=== PATIENT | male | born 1940 | race Caucasian/White ===

== ENCOUNTER 2017-03-09 10:42 | Inpatient (IN) | payer OTHER ==
[~2017-03-09] VITALS: Ht 177.8 cm; Wt 57.6 kg
[~2017-03-09 10:42] MED LIST: ALEVE220 MG PO; CAT0.1 PO; CIPRO500 MG PO; FLA500 PO; LAC PO; METHADONE HCL5 MG PO; NOR5 PO; [UNRECOGNIZED DRUG - REMARK] PO
[2017-03-09 13:11] LABS: BASOPHIL % 0.4 % (0-2); PLATELET COUNT 120 x10^3mcL (130-400); RED CELL DISTRIBUTION WIDTH 16.2 % (11.5-14.5)
[2017-03-09 13:17] LABS: CALCIUM 7.9 mg/dL (8.5-10.1); CARBON DIOXIDE 25.8 mmol/L (21-32); CHLORIDE SERUM 107 mmol/L (98-107); CREATININE SERUM 0.8 mg/dL (0.7-1.3); GLUCOSE SERUM 91 mg/dL (74-106); POTASSIUM SERUM 3.7 mmol/L (3.5-5.1); SODIUM SERUM 139 mmol/L (136-145)
[2017-03-09 13:22] LABS: ALKALINE PHOSPHATASE 103 U/L (46-116); ALT/SGPT 89 U/L (16-63); AST/SGOT 92 U/L (15-37); BILIRUBIN TOTAL 1.6 mg/dL (0.20-1.00); CHOLESTEROL 163 mg/dL (<200); CHOLESTEROL/HDL RATIO 2.9; HDL CHOLESTEROL 57 mg/dL (40-60); TRIGLYCERIDES 81 mg/dL (<150)
[2017-03-09 13:30] LABS: ALBUMIN 2.5 g/dL (3.4-5.0); TOTAL PROTEIN, SERUM 8.6 g/dL (6.4-8.2)
[2017-03-09] MEDS ORDERED: METHADONE HCL5 MG PO (14:44)
[2017-03-09 15:08] LABS: MAGNESIUM 1.8 mg/dL (1.8-2.4)
[2017-03-09 15:15] LABS: T3 TOTAL 1.14 ng/mL
[2017-03-09 15:21] LABS: FREE T4 1.53 ng/dL (0.76-1.46); FREE THYROXINE INDEX 3.2 ug/dL (1.4-4.5); T4(THYROXINE) 9.8 ug/dL (4.7-13.3)
[2017-03-09 18:08] VITALS: BP 157/89
[2017-03-09 21:49] VITALS: BP 125/72
[2017-03-10 05:59] VITALS: BP 133/85
[2017-03-10 07:18] LABS: BASOPHIL % 0.9 % (0-2)
[2017-03-10 07:23] LABS: CALCIUM 7.5 mg/dL (8.5-10.1); CARBON DIOXIDE 23.1 mmol/L (21-32); CHLORIDE SERUM 112 mmol/L (98-107); CREATININE SERUM 0.7 mg/dL (0.7-1.3); GLUCOSE SERUM 77 mg/dL (74-106); POTASSIUM SERUM 3.6 mmol/L (3.5-5.1); SODIUM SERUM 142 mmol/L (136-145)
[2017-03-10 07:46] LABS: PLATELET COUNT 88 x10^3mcL (130-400); RED CELL DISTRIBUTION WIDTH 16.3 % (11.5-14.5)
[2017-03-10 08:59] VITALS: BP 142/106
== END 2017-03-10 12:27 | disposition left against medical advice (07) | DRG 542 ==
LOC: ED 10:42 → DU 14:20
PROVIDERS: Specialist; ADMIT Family Medicine
DX: M84.459A Pathological fracture, hip, unspecified, initial encounter for fracture (principal); E43 Unspecified severe protein-calorie malnutrition; N17.0 Acute kidney failure with tubular necrosis; Z68.1 Body mass index [BMI] 19.9 or less, adult; M84.454A Pathological fracture, pelvis, initial encounter for fracture; I10 Essential (primary) hypertension; L60.2 Onychogryphosis; K74.69 Other cirrhosis of liver; D64.9 Anemia, unspecified
CPT/HCPCS: 83880; 84439; J3411; J3475; J3490; J7030; Q0092

== ENCOUNTER 2017-11-10 01:11 | Emergency (ER) | payer OTHER ==
[~2017-11-10] VITALS: Ht 177.8 cm; Wt 54.4 kg
[2017-11-10 01:21] VITALS: Ht 177.8 cm; Wt 54.4 kg
[2017-11-10 02:43] LABS: BASOPHIL % 0.5 % (0-2)
[2017-11-10 03:02] LABS: PLATELET COUNT 87 x10^3mcL (130-400); RED CELL DISTRIBUTION WIDTH 15.2 % (11.5-14.5)
[2017-11-10 03:55] LABS: CALCIUM 7.5 mg/dL (8.5-10.1); CARBON DIOXIDE 22.8 mmol/L (21-32); CHLORIDE SERUM 106 mmol/L (98-107); CREATININE SERUM 1.2 mg/dL (0.7-1.3); GLUCOSE SERUM 102 mg/dL (74-106); POTASSIUM SERUM 4.1 mmol/L (3.5-5.1); SODIUM SERUM 139 mmol/L (136-145)
[2017-11-10 03:59] LABS: ALKALINE PHOSPHATASE 91 U/L (46-116); ALT/SGPT 68 U/L (16-63); AST/SGOT 74 U/L (15-37)
[2017-11-10 04:01] LABS: ALBUMIN 2.3 g/dL (3.4-5.0); CHOLESTEROL 125 mg/dL (<200)
[2017-11-10 04:38] VITALS: BP 119/84
== END 2017-11-10 04:38 | disposition home or self-care (01) ==
LOC: ED 01:11
PROVIDERS: Specialist
DX: R55 Syncope and collapse (principal); I10 Essential (primary) hypertension; Z88.0 Allergy status to penicillin
CPT/HCPCS: 36415; 83880; G0480; J7030

== ENCOUNTER 2018-04-04 18:29 | Inpatient (IN) | payer OTHER ==
[~2018-04-04] VITALS: Ht 170.2 cm; Wt 55.6 kg
[2018-04-04 20:33] LABS: BASOPHIL % 1.7 % (0-2); PLATELET COUNT 133 x10^3mcL (130-400)
[2018-04-04 20:49] LABS: RED CELL DISTRIBUTION WIDTH 14.8 % (11.5-14.5)
[2018-04-04 20:54] LABS: CALCIUM 7.8 mg/dL (8.5-10.1); CARBON DIOXIDE 27.7 mmol/L (21-32); CHLORIDE SERUM 109 mmol/L (98-107); GLUCOSE SERUM 131 mg/dL (74-106); POTASSIUM SERUM 3.9 mmol/L (3.5-5.1); SODIUM SERUM 142 mmol/L (136-145)
[2018-04-04 20:59] LABS: ALKALINE PHOSPHATASE 106 U/L (46-116); ALT/SGPT 77 U/L (16-63); AST/SGOT 75 U/L (15-37); BILIRUBIN TOTAL 0.94 mg/dL (0.20-1.00); LIPASE 624 IU/L (73-393)
[2018-04-04 21:00] LABS: ALBUMIN 2.5 g/dL (3.4-5.0); TOTAL PROTEIN, SERUM 8.6 g/dL (6.4-8.2)
[2018-04-05 01:34] LABS: CHOLESTEROL/HDL RATIO 3.2; MAGNESIUM 1.9 mg/dL (1.8-2.4)
[2018-04-05 02:14] VITALS: BP 158/79
[2018-04-05 06:02] VITALS: BP 141/80
[2018-04-05 07:14] VITALS: BP 147/78
[2018-04-05] MEDS ORDERED: FLE10 PO (13:06)
[2018-04-05 13:19] VITALS: BP 147/78
[2018-04-05 21:06] VITALS: BP 129/66
== END 2018-04-05 23:15 | disposition home or self-care (01) | DRG 562 ==
LOC: ED 18:29 → MU 04-05 00:03
PROVIDERS: Emergency Medicine; Family Medicine
DX: S39.012A Strain of muscle, fascia and tendon of lower back, initial encounter (principal); N17.0 Acute kidney failure with tubular necrosis; Z68.1 Body mass index [BMI] 19.9 or less, adult; K74.60 Unspecified cirrhosis of liver; F11.90 Opioid use, unspecified, uncomplicated; I10 Essential (primary) hypertension; Z66 Do not resuscitate; Z99.3 Dependence on wheelchair; X58.XXXA Exposure to other specified factors, initial encounter; Y93.89 Activity, other specified; Y92.013 Bedroom of single-family (private) house as the place of occurrence of the external cause
CPT/HCPCS: 83880; J1885; J2060; J2270; J7030; Q9967

== ENCOUNTER 2018-05-22 13:17 | Emergency (ER) | payer OTHER | END 2018-05-22 18:11 | disposition home or self-care (01) | LOC: ED 13:17 ==

== ENCOUNTER 2019-02-22 16:35 | Inpatient (IN) | payer OTHER ==
[~2019-02-22] VITALS: Ht 170.2 cm; Wt 60.0 kg
[~2019-02-22 16:35] MED LIST changes: +FLE10 PO
[2019-02-22 16:37] VITALS: Ht 170.2 cm; Wt 60.0 kg
[2019-02-22 17:57] LABS: BASOPHIL % 0.3 % (0-2); PLATELET COUNT 131 x10^3mcL (130-400)
[2019-02-22 18:02] LABS: RED CELL DISTRIBUTION WIDTH 16.4 % (11.5-14.5)
[2019-02-22 18:19] LABS: CALCIUM 7.1 mg/dL (8.5-10.1); CARBON DIOXIDE 24.6 mmol/L (21-32); CHLORIDE SERUM 110 mmol/L (98-107); CREATININE SERUM 1.4 mg/dL (0.7-1.3); GLUCOSE SERUM 132 mg/dL (74-106); POTASSIUM SERUM 3.8 mmol/L (3.5-5.1); SODIUM SERUM 142 mmol/L (136-145)
[2019-02-22 18:31] LABS: ALKALINE PHOSPHATASE 90 U/L (46-116); ALT/SGPT 43 U/L (16-63); AST/SGOT 48 U/L (15-37); BILIRUBIN TOTAL 1.6 mg/dL (0.20-1.00); LIPASE 459 IU/L (73-393); MAGNESIUM 1.8 mg/dL (1.8-2.4); T4(THYROXINE) 7.7 ug/dL (4.7-13.3); TOTAL PROTEIN, SERUM 7.1 g/dL (6.4-8.2)
[2019-02-22 18:39] LABS: CHOLESTEROL 108 mg/dL (<200); HDL CHOLESTEROL 23 mg/dL (40-60)
[2019-02-22 20:37] VITALS: BP 136/76
[2019-02-23 05:49] VITALS: BP 156/88
[2019-02-23 06:51] LABS: BASOPHIL % 0.3 % (0-2)
[2019-02-23 06:56] LABS: PLATELET COUNT 89 x10^3mcL (130-400); RED CELL DISTRIBUTION WIDTH 16.3 % (11.5-14.5)
[2019-02-23 07:08] LABS: CALCIUM 6.9 mg/dL (8.5-10.1); CARBON DIOXIDE 23.2 mmol/L (21-32); CHLORIDE SERUM 113 mmol/L (98-107); CREATININE SERUM 1.1 mg/dL (0.7-1.3); GLUCOSE SERUM 85 mg/dL (74-106); POTASSIUM SERUM 3.8 mmol/L (3.5-5.1); SODIUM SERUM 144 mmol/L (136-145)
[2019-02-23 07:14] LABS: MAGNESIUM 1.9 mg/dL (1.8-2.4); PHOSPHOROUS 2.5 mg/dL (2.5-4.9)
[2019-02-23 09:24] VITALS: BP 140/79
[2019-02-23 13:01] VITALS: BP 133/76
[2019-02-23 17:00] VITALS: BP 130/80
[2019-02-23 20:28] VITALS: BP 135/84
[2019-02-24 05:03] VITALS: BP 139/81
[2019-02-24 07:12] LABS: BASOPHIL % 0.4 % (0-2)
[2019-02-24 07:23] LABS: CARBON DIOXIDE 20.8 mmol/L (21-32); CHLORIDE SERUM 112 mmol/L (98-107); CREATININE SERUM 1.2 mg/dL (0.7-1.3); GLUCOSE SERUM 98 mg/dL (74-106); MAGNESIUM 1.7 mg/dL (1.8-2.4); PHOSPHOROUS 2.6 mg/dL (2.5-4.9); POTASSIUM SERUM 3.5 mmol/L (3.5-5.1); SODIUM SERUM 142 mmol/L (136-145)
[2019-02-24 07:26] VITALS: BP 142/79
[2019-02-24 07:44] LABS: PLATELET COUNT 100 x10^3mcL (130-400); RED CELL DISTRIBUTION WIDTH 16.3 % (11.5-14.5)
[2019-02-24 08:05] LABS: AMPHETAMINE QUAL UR NONE DETECTED (See below)
[2019-02-24 11:30] VITALS: BP 146/73
[2019-02-24 17:17] VITALS: BP 132/80
[2019-02-24 20:07] VITALS: BP 137/79
[2019-02-25 05:46] VITALS: BP 149/85
[2019-02-25 11:58] VITALS: BP 130/77
[2019-02-25 17:00] VITALS: BP 93/61
[2019-02-25 20:34] VITALS: BP 114/74
[2019-02-26 04:15] VITALS: BP 140/70
[2019-02-26 08:53] VITALS: BP 136/77
[2019-02-26 12:21] VITALS: BP 111/69
[2019-02-26 13:15] VITALS: BP 111/69
== END 2019-02-26 15:08 | DRG 441 ==
LOC: ED 16:35 → DU 19:19 → MU 02-26 11:56
PROVIDERS: Emergency Medicine; ADMIT Internal Medicine
DX: K72.00 Acute and subacute hepatic failure without coma (principal); I21.A1 Myocardial infarction type 2; E43 Unspecified severe protein-calorie malnutrition; N17.9 Acute kidney failure, unspecified; B18.2 Chronic viral hepatitis C; K70.30 Alcoholic cirrhosis of liver without ascites; I12.9 Hypertensive chronic kidney disease with stage 1 through stage 4 chronic kidney disease, or unspecified chronic kidney disease; F32.9 Major depressive disorder, single episode, unspecified; N18.9 Chronic kidney disease, unspecified; D64.9 Anemia, unspecified; L89.152 Pressure ulcer of sacral region, stage 2; L89.322 Pressure ulcer of left buttock, stage 2; L89.312 Pressure ulcer of right buttock, stage 2; L89.222 Pressure ulcer of left hip, stage 2; L89.212 Pressure ulcer of right hip, stage 2; Z99.3 Dependence on wheelchair; Z68.23 Body mass index [BMI] 23.0-23.9, adult; Z87.891 Personal history of nicotine dependence; Z79.891 Long term (current) use of opiate analgesic
CPT/HCPCS: 83880; 97110-GP; 97530-GP; G0378; G0480; J1956; J3475; J7030; Q0092

== ENCOUNTER 2019-03-23 13:07 | Inpatient (IN) | payer OTHER, MEDICAID ==
[~2019-03-23] VITALS: Ht 177.8 cm; Wt 60.8 kg
--- NOTE | 2019-03-23 13:44 | NUR ---
PT BROUGHT IN VIA AMBULANCE DUE TO FAMILY STATING HE HAS HAD RECENT ALOC. PT HAS GARBLED AND SLURRED SPEECH. HE STATES HE HAS NO PAIN AND ABLE TO ANSWER QUESTIONS APPROPRIATELY. DTR AT BEDSIDE. DTR STATES HE STARTED HAVING ALOC WHEN SNF STARTED [facility] LAST MONTH. HE HAS POSITIVE RHONCHI IN ALL LUNG CHU, NO DIFFICULTY IN BREATHING, O2 SATS AT 94% RA. WILL CONT TO MONITOR.
[2019-03-23 14:07] LABS: BASOPHIL % 0.2 % (0-2)
[2019-03-23 14:09] LABS: PLATELET COUNT 129 x10^3mcL (130-400); RED CELL DISTRIBUTION WIDTH 15.4 % (11.5-14.5)
[2019-03-23 14:33] LABS: CALCIUM 7.4 mg/dL (8.5-10.1); CARBON DIOXIDE 24.1 mmol/L (21-32); CHLORIDE SERUM 113 mmol/L (98-107); CREATININE SERUM 1.3 mg/dL (0.7-1.3); GLUCOSE SERUM 66 mg/dL (74-106); POTASSIUM SERUM 4.2 mmol/L (3.5-5.1); SODIUM SERUM 146 mmol/L (136-145)
[2019-03-23 14:37] LABS: ALKALINE PHOSPHATASE 73 U/L (46-116); ALT/SGPT 37 U/L (16-63); AST/SGOT 55 U/L (15-37); BILIRUBIN TOTAL 1.5 mg/dL (0.20-1.00); MAGNESIUM 2.1 mg/dL (1.8-2.4); TOTAL PROTEIN, SERUM 7.4 g/dL (6.4-8.2)
[2019-03-23 14:39] LABS: ALBUMIN 1.7 g/dL (3.4-5.0)
--- NOTE | 2019-03-23 15:46 | NUR ---
ADMINISTERED 1AMP 50% DEXTROSE IVP FOR BLOOD GLUCOSE VALUE: 66.
--- NOTE | 2019-03-23 16:33 | NUR ---
STRAIGHT CATH PT DUE TO INCONTINENCE. SENT TO LAB. DENIES PAIN AT THIS TIME.
[2019-03-23 17:22] LABS: microscopic required? YES; urine erythrocyte 3+ (NEGATIVE)
[2019-03-23 17:31] LABS: AMPHETAMINE QUAL UR NONE DETECTED (See below)
[2019-03-23 19:11] LABS: CHOLESTEROL/HDL RATIO 6.4
[2019-03-23 19:19] LABS: FREE T4 1.67 ng/dL (0.76-1.46); T3 TOTAL 0.55 ng/mL; T4(THYROXINE) 7.6 ug/dL (4.7-13.3)
[2019-03-23] MEDS ORDERED: ENULOSE10 GM/151 PO (19:22)
[2019-03-23] MEDS ORDERED: CATAPRES0.1 MG PO (19:25)
--- NOTE | 2019-03-23 19:37 | NUR ---
REPORT GIVEN TO TRUDY AT [id number]
--- NOTE | 2019-03-23 19:47 | NUR ---
TOOK PICS OF WOUNDS. ENDORSED TO TELE NURSE TO CHECK COCCYX AREA DUE TO PT GETTING AGITATED.
[2019-03-23 20:30] VITALS: BP 121/70
--- NOTE | 2019-03-23 20:30 | NUR ---
RECEIVED PT FROM ED VIA RPAMPLIN ACCOMPANY BY NURSE. PT AWAKE ALERT TO NAME ONLY. PT IS CONFUSED. BREATHING EVEN AND UNLABORED ON NC 3L/MIN, WITH NO SOB NOTED. IV RAC PATENT. ABD DIST/ACTIVE BOWEL SOUNDS. UNABLE TO OBTAIN PT INFORMATION AT THIS TIME. MULT WOUNDS, SEE ASSESSMENT. GENERALIZED WEAKNESS. CALL BUTTON WITHIN REACH. SAFETY PRECAUTIONS IN PLACE. WILL CONTINUE TO MONITOR.
--- NOTE | 2019-03-23 21:00 | NUR ---
BEDSIDE SWOLLOW EVAL DONE AT THIS TIME, PT ABLE TO TOLERATE PUREE. CRUSHED MEDS. MADE AWARE.
[2019-03-23 22:57] VITALS: BP 121/70
--- NOTE | 2019-03-23 23:04 | NUR ---
PT RESTLESS, REPORTING MILD PAIN. MEDICATED PER EMAR. CALL BUTTON WITHIN REACH. SAFETY PRECAUTIONS IN PLACE. GLOVE EXAMINER AT BEDSIDE. WILL CONTINUE TO MONITOR.
--- NOTE | 2019-03-24 03:21 | NUR ---
ROUNDS MADE. PT RESTING. NO SIGNS OF ACUTE DISTRESS NOTED. CALL BUTTON WITHIN REACH. SAFETY PRECAUTIONS IN PLACE. WILL CONTINUE TO MONITOR.
[2019-03-24 04:44] VITALS: BP 117/66
[2019-03-24 06:31] LABS: BASOPHIL % 0.3 % (0-2)
--- NOTE | 2019-03-24 06:34 | NUR ---
PT SLEPT ON AND OFF THROUGHOUT THE NIGHT WITH NO ACUTE DISTRESS NOTED. IV PATENT, INFUSING WELL. PT TURN AND REPOSITIONED NEEDED. MEDICATED PER EMAR. PT ON NC 3L/MIN WITH NO SOB NOTED. CALL BUTTON WITHIN REACH. SAFETY PRECAUTIONS IN PLACE. IT INVESTMENT/PORTFOLIO MANAGER AT BEDSIDE. WILL CONTINUE TO MONITOR AND ENDORSE CARE TO DAY SHIFT RN.
[2019-03-24 06:38] LABS: PLATELET COUNT 113 x10^3mcL (130-400); RED CELL DISTRIBUTION WIDTH 15.2 % (11.5-14.5)
--- NOTE | 2019-03-24 06:55 | NUR ---
US TECH AT BEDSIDE.
[2019-03-24 07:02] LABS: CALCIUM 7.4 mg/dL (8.5-10.1); CARBON DIOXIDE 26.2 mmol/L (21-32); CHLORIDE SERUM 116 mmol/L (98-107); CREATININE SERUM 1.5 mg/dL (0.7-1.3); GLUCOSE SERUM 91 mg/dL (74-106); MAGNESIUM 2.2 mg/dL (1.8-2.4); PHOSPHOROUS 4.4 mg/dL (2.5-4.9); POTASSIUM SERUM 4.5 mmol/L (3.5-5.1); SODIUM SERUM 149 mmol/L (136-145)
--- NOTE | 2019-03-24 07:25 | NUR ---
RECEIVED PT FROM TAILMAN. PT AWAKE, A/OX1 WITH CONFUSION NOTED. PT ON 3LNC WITH NO RESP DISTRESS NOTED. PT ON TELE 9, NO CHEST PAIN NOTED. IV ACCESS RFA, CDI INFUSING NS AT 70ML/HR. PERIPHERAL PULSES PALPABLE, PT NOTED TO HAVE 3+PITTING EDEMA TO LLE. ACTIVE BS NOTED. PT NOTED TO BE INCONTINENT OF URINE. PT HAS GENERALIZED WEAKNESS. SAFETY MEASURES IN PLACE, BED LOW AND LOCKED. CALL LIGHT WITHIN REACH.
--- NOTE | 2019-03-24 07:30 | NUR ---
PT AWAKE DENIES ANY PAIN. NO SIGNS OF DISTRESS NOTED. CALL BUTTON WITHIN REACH. SAFETY PRECAUTIONS IN PLACE. ENDORSED CARE TO DAY SHIFT RN, ALL QUESTIONS ADDRESSED.
--- NOTE | 2019-03-24 09:08 | NUR ---
UNABLE TO GIVE LACTULOSE, PT REFUSING AT THIS TIME. PT ABLE TO SWALLOW NORVASC WITH SMALL AMOUNT OF PUDDING.
[2019-03-24 09:18] VITALS: BP 138/72
--- NOTE | 2019-03-24 09:31 | NUR ---
NUBIA WOUND CARE AT BEDSIDE. SILVASORB APPLIED TO LEFT EYEBROW WOUND, HYDRAGUARD APPLIED TO LEGS, ZGUARD APPLIED TO BUTTOCK WOUNDS AND COVERED WITH OPTIFOAM. PT TOLERATED WELL. SITTER AT BEDSIDE. ALLERGY BAND APPLIED.
--- NOTE | 2019-03-24 09:38 | NUR ---
ULTRASOUND AT BEDSIDE TO R/O LLE DVT.
--- NOTE | 2019-03-24 11:45 | NUR ---
WOUND CARE EVALUATION NOTE: REASON FOR EVALUATION: MULTIPLE PRESSURE ULCERS SKIN ASSESSMENT DONE WITH THIS 78 Y/O MALE PT AD[place] [facility] [place] S/P FALL.PT. VISITED AND DISCHARGED HOME WITH SON. PAST MEDICAL HX INCLUDES HEPATITIS C WITH LIVER CIRRHOSIS, HTN, CHRONIC PAIN, AND DEPRESSION PT. ADMITTED WITH MULTIPLE PRESSURE ULCERS. ALL ABOVE INFORMATION OBTAINED FROM ADMISSION H&P. PT SKIN IS WARM AND DRY, BLE NO HAIR GROWTH, NO EDEMA. DORSAL PEDAL PULSES PRESENT AND NORMAL. FUNGAL NAILS X 10 TOES. PLAN OF CARE DISCUSSED WITH PRIMARY RN. INTEGUMENTARY: -SKIN TEARS TO LEFT EYEBROW (0.5X2CM) AND LEFT ELBOW (3X0.2CM), WOUND BEDS ARE MOIST AND CLEAN, SUPERFICIAL DEPTH, NO ODOR RAMON-WOUND SKIN ERYTHEMA. -XEROSIS TO BLE -PRESSURE ULCER STAGE 2 TO RIGHT TROCNANTER, 2X2X0.1CM 100% GRANULATING TISSUE TO WOUND BED, MOIST, NO ODOR, RAMON-WOUND SKIN INTACT. -PRESSURE ULCER STAGE 2 TO SACRALCOCCYX 1X2X0.1CM, 100% GRANULATING TISSUE TO WOUND BED, MOIST, NO ODOR, RAMON-WOUND SKIN INTACT. -PRESSURE ULCER STAGE 2 LEFT BUTTOCK, 3X3X0.1CM, IRREGULAR SHAPE, 100% GRANULATING TISSUE TO WOUND BED, MOIST, NO ODOR, RAMON-WOUND SKIN INTACT. -PRESSURE ULCER STAGE 2 RIGHT BUTTOCK, 4X2X0.1CM, IRREGULAR SHAPE, 100% GRANULATING TISSUE TO WOUND BED, MOIST, NO ODOR, RAMON-WOUND SKIN INTACT. RECOMMENDATIONS: -CLEANSE SKIN TEARS TO LEFT EYEBROW AND LEFT ELBOW WITH NS. PAT DRY APPLY SILVASORB GEL AND COVER WITH DRY DRESSSING QD AND PRN IF SOILING. -APPLY HYDRAGUARD TO BLE BID AND SOLUTION ANALYST -CLEANSE RIGHT TROCHANDAR, SACRALCOCCYX, RIGHT BUTTOCK AND LEFT BUTTOCK WITH NS, PAT DRY, APPLY Z GUARD AND COVER WITH OPTIFOAM QD AND PRN IF SOILING -OFFLOAD BILATERAL HEELS BY PLACING PILLOWS UNDER CALVES UNLESS OTHERWISE CONTRAINDICATED -PRESSURE REDISTRIBUTION SURFACE THERAPY -TURN AND REPOSITION Q2H, OFFLOAD SACRALCOCCYX AND RIGHT HIP -KEEP SKIN DRY AND CLEAN AT ALL TIMES, PLEASE CHECK Q2H AND PRN FOR INCONTINENCY OF BOWEL AND BLADDER. -CONTINUE TO FOLLOW RD RECOMMENDATIONS ALL ABOVE RECOMMENDATIONS DISCUSSED WITH PRIMARY RN. WILL FOLLOW UP PT Q7-10 DAYS. PLEASE CONTACT WOUND CARE NURSE FOR ANY QUESTION AND CHANGE OF WOUND CONDITION.
--- NOTE | 2019-03-24 12:30 | NUR ---
PT HAD SMALL FORMED BM. PT CLEANED AND REPOSITIONED WITH HOSPITAL INSURANCE CLERK. SAFETY MAINTAINED.
--- NOTE | 2019-03-24 13:09 | NUR ---
PT SLEEPING WITH NO ACUTE DISTRESS NOTED AT THIS TIME. O2 SAT 91% ON 3LNC. SITTER AT BEDSIDE. SAFETY MAINTAINED.
--- NOTE | 2019-03-24 14:20 | NUR ---
PT NOTED TO NOT URINATE SINCE START OF SHIFT. BLADDER SCAN <200ML AT THIS TIME. DR. VILLAFUERTE AWARE. PER DR. VILLAFUERTE, CONTINUE TO MONITOR PATIENT.
[2019-03-24 14:52] VITALS: BP 119/66
--- NOTE | 2019-03-24 16:13 | NUR ---
CARE ENDORSED BY VENKATA HENDRICKSON.
--- NOTE | 2019-03-24 16:31 | NUR ---
PT TRANSFERRED TO ROOM 216-A.
--- NOTE | 2019-03-24 18:33 | NUR ---
PT AOX1, CONFUSED, RESP E/U ON 3L NC. NO ACUTE DISTRESS NOTED. TOLERATING PUREED DIET WELL BUT HAS POOR APPETITE, ENCOURAGED PT TO CONTINUE EATING MEAL WHEN ABLE. IV TO RFA W/ NO SIGNS OF INFILTRATION, IVF INFUSING WELL. BED IN LOWEST POSITION AND CALL LIGHT WITHIN REACH. SITTER AT BEDSIDE. WILL ENDORSE TO ONCOMING NURSE.
[2019-03-24 18:36] VITALS: BP 123/71
--- NOTE | 2019-03-24 19:10 | NUR ---
RECEIVED REPORT FROM DAY SHIFT NURSE, ML HASTINGS. PT IS AWAKE, CONFUSED. ABLE TO MAKE NEEDS KNOWN. FOLLOWS SIMPLE COMMANDS. ENGLISH SPEAKING. DENIES WHITFIELD. ON TELE #9 [address] SR 97. DENIES CP. PULSES ARE PALPABLE. 3+ PITTING EDEMA TO L FOOT. BREATHING IS EVEN AND UNLABORED ON 3L NC. CONGESTED. DENIES SOB. NO ACUTE DISTRESS NOTED. ABD IS SOFT AND NONDISTENDED. BS ACTIVE. DENIES N/V/D. INCONTINENT. WILL PROVIDE RAMON CARE NEEDED. GENERALIZED WEAKNESS, WHEELCHAIR BASELINE. WILL REPOSITION Q2H. SKIN TEAR NOTED TO L EYEBROW, CONTROL DIRECTOR AND L ELBOW, CDI. PRESSURE ULCER TO ULCER SACCRAL-COCCYX/L/R BUTTOCKS, DRSG CDI. DENIES ANY PAIN AT THIS TIME. IV TO RW DRY AND INTACT. NO ERYTHEMA NOTED. BED IN LOWEST POSITION. CALL LIGHT WITHIN REACH. WILL CONTINUE TO MONITOR.
[2019-03-24 20:27] VITALS: BP 144/98
--- NOTE | 2019-03-24 21:15 | NUR ---
PT REFUSED MEDICATION. EDUCATED PT ON BENEFITS OF MEDICATION, PT STILL REFUSED. BREATHING IS EVEN AND UNLABORED ON 3LNC. NO SIGNS OF RESP. DISTRESS. REPOSITIONED PT AND PROVIDED RAMON CARE. DENIES ANY PAIN AT THIS TIME. BED IN LOWEST POSITION. CALL LIGHT WITHIN REACH. SITTER AT BEDSIDE. WILL CONTINUE TO MONITOR.
--- NOTE | 2019-03-24 23:32 | NUR ---
PT IS RESTING COMFORTABLY WITH EYES CLOSED BUT EASILY AROUSABLE WHEN SPOKEN TO. BREATHING IS EVEN AND UNLABORED ON 3LNC. NO SIGNS OF RESP. DISTRESS. SITTER AT BEDSIDE. BED IN LOWEST POSITION. BED RAILS UP X2. CALL LIGHT WITHIN REACH. WILL CONTINUE TO MONITOR.
--- NOTE | 2019-03-25 01:45 | NUR ---
PT IS RESTING COMFORTABLY WITH EYES CLOSED, BUT EASILY AROUSABLE WHEN SPOKEN TO. BREATHING IS EVEN AND UNLABORED ON 3LNC. NO RESP. DISTRESS NOTED. DENIES ANY PAIN AT THIS TIME. SITTER AT BEDSIDE. CALL LIGHT WITHIN REACH. BED IN LOWEST POSITION. WILL CONTINUE TO MONITOR.
--- NOTE | 2019-03-25 03:45 | NUR ---
PT IS RESTING COMFORTABLY WITH EYES CLOSED, BUT EASILY AROUSABLE WHEN SPOKEN TO. BREATHING IS EVEN AND UNLABORED ON 3LNC. NO SIGNS OF RESP. DISTRESS. BED IN LOWEST POSITION. BED ALARM ON. SITTER AT BEDSIDE. CALL LIGHT WITHIN REACH. WILL CONTINUE TO MONITOR.
[2019-03-25 05:24] VITALS: BP 145/85
--- NOTE | 2019-03-25 06:35 | NUR ---
PT SLEPT IN LONG INTERVALS AND COMPLIED WITH NURSING CARE THROUGHOUT THE SHIFT WITH NO ACUTE EVENTS OCCURRING DURING OVERNIGHT. ALL NEEDS ASSESSED AND ATTENDED TO. COMFORT AND SAFETY MEASURES MAINTAINED. PT IS RESTING COMFORTABLY IN BED. BREATHING IS EVEN AND UNLABORED ON 3LNC. DENIES ANY PAIN AT THIS TIME. PT APPEARS TO BE BETTER, RESPONDS WHEN SPOKEN TO IN [place]. ABLE TO STATE NAME, DATE, BUT BELIEVES HE IS IN [place]. REORIENTED PT. WILL CONTINUE TO MONITOR AND ENDORSE CARE TO DAY SHIFT NURSE.
--- NOTE | 2019-03-25 07:00 | NUR ---
RECIEVED PT RESTING IN BED WITH O S/S OF ANY PAIN OR DISTRESS. A/OX 2. TELE#9 CONNECTED TO PT, DENIES ANY CP OR PRESSURE. PT ON 3 LPM O2 NC, NO SOB NOTED. NS 70/HR RUNNING IN RW, CDI AND PATENT. SAFETY PRECAUTIONS IN PLACE, CALL LIGHT WITHIN REACH, WILL MONITOR.
[2019-03-25 07:06] LABS: IRON 24 ug/dL (65-170); TOTAL IRON BINDING CAPACITY 88 ug/dL (250-450)
[2019-03-25 07:32] LABS: RED BLOOD CELLS 3.17 M/mm3 (4.52-5.90)
[2019-03-25 07:59] LABS: BASOPHIL % 0.1 % (0-2); PLATELET COUNT 108 x10^3mcL (130-400)
[2019-03-25 08:12] LABS: CALCIUM 7.4 mg/dL (8.5-10.1); CARBON DIOXIDE 22.7 mmol/L (21-32); CHLORIDE SERUM 114 mmol/L (98-107); CREATININE SERUM 1.4 mg/dL (0.7-1.3); GLUCOSE SERUM 96 mg/dL (74-106); POTASSIUM SERUM 4.3 mmol/L (3.5-5.1); SODIUM SERUM 145 mmol/L (136-145)
[2019-03-25 08:27] LABS: MAGNESIUM 2.2 mg/dL (1.8-2.4)
[2019-03-25 08:34] VITALS: BP 129/72
--- NOTE | 2019-03-25 10:35 | NUR ---
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 WILL CARRY OUT ANY NEW ORDERS. CHARGE MADE AWARE.
--- NOTE | 2019-03-25 10:37 | NUR ---
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
[2019-03-25 12:30] VITALS: BP 100/74
--- NOTE | 2019-03-25 12:48 | NUR ---
RECEIVED ORDER FOR US GUIDED PARACENTESIS. SPOKE WITH DR MCNEILL, LAST COAG PANEL VALUES OUT OF RANGE, WHICH WAS DONE THREE DAYS AGO. DR MCNEILL REQUESTS REPEAT COAG PANEL. NOTIFIED PATIENT'S NURSE BRITTNY.
--- NOTE | 2019-03-25 13:50 | NUR ---
DR VILLAFUERTE MADE AWARE OF DR MCNEILL REQUEST FOR PT/PTT AND DIAGNOSTIC ORDER FOR PARACENTESIS, WILL FOLLOW THROUGH WITH ANY NEW ORDERS. CHARGE AWARE.
[2019-03-25 15:07] VITALS: Ht 177.8 cm; Wt 60.8 kg
--- NOTE | 2019-03-25 15:21 | NUR ---
RECIEVED CRITICAL VALUE OF PTT= 51.2, DR VILLAFUERTE MADE AWARE, WILL FOLLOW THROUGH WITH ANY NEW ORDERS.
--- NOTE | 2019-03-25 15:50 | NUR ---
REPEAT COAG PANEL NOTED, ELEVATED MORE THAN THREE DAYS PRIOR. NOTIFIED CHARGE NURSE FABIEN AND PATIENT'S PRIMARY NURSE BRITTNY THAT PER RADIOLOGIST WILL NEED HEMOCORRECTION WITH FFP, VITAMIN K ETC. BRITTNY WILL INFORM THE PRIMARY CARE TEAM.
[2019-03-25 17:04] VITALS: BP 108/57
--- NOTE | 2019-03-25 19:06 | NUR ---
PT STABLE WITH NO C/O PAIN OR DISTRESS AT THIS TIME. A/OX2 WITH CONFUSION. PT ON 3 LPM O2 NC, NO SOB NOTED. WOUND DRESSINGS CDI. RW IV INTACT AND PATENT WITH NO REDNESS ORINFLAMMATION NOTED. SAFETY PRECAUTIONS INPLACE, CALL LIGHT WITHIN REACH, WILL ENDORSE CARE TO NIGHT NURSE.
--- NOTE | 2019-03-25 19:25 | NUR ---
RECEIVED PT RESTING IN BED, NO ACUTE DISTRESS NOTED. PT AOX 1-2 (SELF, PERSON). PT ABLE TO STATE OWN NAME AND PRESEIDENT NAME, ALTHOUGH FORGETFUL OF YEAR OF , AND PLACE. WILL CONTINUE TO REOREINT. PT HAS GARBLED SPEECH, CONFUSED, AND REPETITIVE. DENIES WHITFIELD/DIZZINESS. MEDSURG PT, DENIES CP. PULSES PALPABLE BILAT, 3+ PITTING EDEMA LLE, TRACE RLE, SCD'S ON. RESP EVEN AND UNALBORED ON 3LNC, CONGESTED SOUNDING, NONPRODUCTIVE COUGH. PT PROTOCOL, WHEEZE NOTE BILAT. ABD FIRM AND SLIGHTLY DISTENDED, ON LACTULOSE. PARACENTESIS WAS ENDORSED IN BEDSIDE HANDOFF ALTHOUGH APPEARS TO HAVE BEEN CANCELLED, WILL FOLLOW UP. US ASCITES EVAL= LARGE ASCITES ABD. PT ON PUREE DIET, MEDS NEEDS TO BE CRUSHED. PT INCONTINENT OF URINE AND STOOL. UA (+) ON LEVAQUIN. GENERALIZED WEAKNESS, W/C AT BASELINE. MULTIPLE SKIN TEARS NOTED (LEFT EYE BROW, LUE, BUE ECCHYMOSIS, PRESSURE WOUNDS TO BUTTOCKS-OPTIFORM IN PLACE; CDI). IV SITE TO THE RT WRIST, NO REDNESS, SWELLING OR PAIN NOTED. ALL COMFORT AND SAFETY MEASURES PROVIDED FOR, CALL LIGHT WITHIN REACH, BED IN LOWEST POSITION, WILL CONTINUE TO MONITOR.
[2019-03-25 20:57] VITALS: BP 142/73
--- NOTE | 2019-03-26 05:05 | NUR ---
PT RESTED IN INTERVALS DURING SHIFT, NO ACUTE CHANGES OCCURRING OVERNIGHT. PT REMAINS CONFUSED, SEEN TRYING TO SWING LEGS OVER THE RAIL. REORIENTED PT TO HOSPITAL AND SURROUNDINGS. PT BED LINENS CHANGED, PT URINATED A LARGE AMOUNT. PT HAS NOT HAD A BM DURING SHIFT, OPTIFORM REMAINS IN PLACE TO BUTTOCKS. ALL COMFORT AND SAFETY MEASURES PROVIDED FOR, CALL LIGHT WITHIN REACH ,BED IN LOWEST POSITION, WILL CONTINUE TO MONITOR.
[2019-03-26 05:44] VITALS: BP 145/83
[2019-03-26 06:32] LABS: BASOPHIL % 0.3 % (0-2)
[2019-03-26 06:36] LABS: IRON 36 ug/dL (65-170)
[2019-03-26 06:42] LABS: TOTAL IRON BINDING CAPACITY 89 ug/dL (250-450)
[2019-03-26 06:43] LABS: PLATELET COUNT 109 x10^3mcL (130-400); RED CELL DISTRIBUTION WIDTH 15.9 % (11.5-14.5)
[2019-03-26 06:50] LABS: CALCIUM 8.1 mg/dL (8.5-10.1); CARBON DIOXIDE 22.6 mmol/L (21-32); CHLORIDE SERUM 113 mmol/L (98-107); CREATININE SERUM 1.5 mg/dL (0.7-1.3); GLUCOSE SERUM 96 mg/dL (74-106); PHOSPHOROUS 4.3 mg/dL (2.5-4.9); POTASSIUM SERUM 4.5 mmol/L (3.5-5.1); SODIUM SERUM 146 mmol/L (136-145)
--- NOTE | 2019-03-26 07:30 | NUR ---
RECEIVED PT. IN BED AWAKE, ALERT. PT. IS ONLY ORIENTED TO PERSON. NO SOB, NO N/V NOTED. PT. WITH GARBLED SPEECH NOTED. PT. DENIES ANY PAIN AT THIS TIME. PT. IS ON CONTACT ISOLATION FOR MRSA NARES. IV SITE NOTED TO R WRIST. SCD TO BLE MAINTAINED. BED IN LOW POS., CALL LIGHT WITHIN REACH. SIDE RAILS UP X3.
--- NOTE | 2019-03-26 08:27 | NUR ---
SPOKE WITH PATIENT'S NURSE TODAY, RICHARD R/T PARACENTESIS PLAN FOR TODAY, SHE WILL CHECK WITH PRIMARY CARE TEAM AND LET RADIOLOGY KNOW. MEANTIME I HAVE PLACED A CALL TO ORDERING PHYSICIAN DR Tegan ROGERS REGARDING ORDERING FFP FOR THIS AM SO THAT THE PARACENTESIS COULD BE DONE TODAY, OR GIVE IN EARLY AM TOMORROW FOR PLANNED PROCEDURE TOMORROW. AWAITING CALL BACK.
[2019-03-26 09:04] VITALS: BP 134/75
--- NOTE | 2019-03-26 09:13 | NUR ---
ENDORSED PT.'S CARE TO TRAN SESAY RN.
--- NOTE | 2019-03-26 09:15 | NUR ---
RECEIVED PATIENT REPORT FROM VENKATA RAMOS. NO ACUTE RESPIRATORY DISTRESS NOTED AT THIS TIME. NO C/O PAIN OR PRESSURE. NO SOB NOTED. REMAINS ON 3L NC. IV TO RFA SALINE LOCK. NO INFILTRATION NOTED. SAFETY PRECAUTION IN PLACE. CALL LIGHT WITHIN REACH. WILL CONTINUE TO MONITOR. URINE SAMPLE STILL PENDING.
--- NOTE | 2019-03-26 09:57 | NUR ---
LEFT DETAILED MESSAGE FOR DR Tegan ROGERS ON HIS CELL PHONE REGARDING NEED FOR FFP EARLY TODAY OR EARLY AM TOMORROW FOR ORDERED PARACENTESIS TO BE DONE. SPOKE WITH PATIENT'S NURSE TRAN WHO STATES SHE HAS NO ORDER YET FOR FFP AND HAS NOT SEEN PHYSICIAN TO ASK ABOUT IT. REQUESTED AN ORDER FOR EARLY AM 03-27-19 TO DO THE PROCEDURE TOMORROW BY THE TIME FFP WOULD BE THAWED AND ADMINISTERED WILL PROBABLY PLACE THE PATIENT READY AFTER HOURS TODAY, AND THE FFP SHOULD BE ADMINISTERED IMMEDIATELY PRIOR TO PROCEDURE OR NO LONGER THAN WITHIN 12 HOURS.
--- NOTE | 2019-03-26 10:10 | NUR ---
DR. ROGERS SEEN SPEAKING WITH PATIENT REGARDING PATIENT COMPLIANCE WITH TREATMENT. PATIENT VERBALIZED UNDERSTANDING. ALSO CONSULTED WITH DR. ROGERS REGARDING PLAN FOR FFP ADMINISTRATION. PER DR. ROGERS, DISREGARD THIS ORDER AT THIS TIME. URIEL, RESEARCH GREENHOUSE SUPERVISOR AWARE. NO SOB NOTED AT THIS TIME. PATIENT STABLE. WILL CONTINUE TO MONITOR.
--- NOTE | 2019-03-26 11:52 | NUR ---
1. Recommend cardiac (puree) diet as patient has hepatic encephalopathy and will benefit from low sodium and low-fat diet. 2. Recommend ONS Ensure BID. Discussed with ELOINA Davies.
--- NOTE | 2019-03-26 11:52 | NUR ---
Initial Nutrition Assessment: 216/A VALERIO METZ IA HR Dx: metabolic and hepatic encephalopathy PMHx: hepatitis C, hypertension, chronic pain, depression and cirrhosis of liver PSHx: None Labs: NA 146H, BUN 40H, CREAT 1.5H, AST 55H, ALB 1.7L Meds: cephulac, Colace, Levaquin, NS, zofran Diet: puree PO intake since admission: (03/25) dinner 0%, lunch 10%, (03/24) dinner 0%, lunch 10% Ht: 177.8 cm (70") Wt: 60.8 kg (134#) BMI: 19.2 kg/m2 Bed scale: 134# IBW: 166# (75 kg) %IBW: 80 UBW: unbale to access Age: 78/M Food Allergies: NKFA Skin: skin tear to L eye brow and L elbow, pressure ulcer on L & R buttock, ecchymosis BUE/BLE Syed: 13 Edema: +3 pitting edema LLE, trace RLE GI: Last BM: 03/24 Per H&P, Pt is a 78 years old with PMH of hepatitis C, hypertension, chronic pain, depression and liver cirrhosis 2/2 hepatitis C and IV drug use (according to the medical records) who was brought by ambulance due to AMS. RD Note (03/26): Patient was little confused. Per RN Marisela, patient likes to refuse his meals and therefore has poor PO. Patient does not have any N/V/D at this time and has been given lactulose to help with BM. Patient's arms appears to have lost muscle mass. FNS received consult for 'malnutrition' on 03/24 Problem with: N/V/D/C: constipation Problems with: Chewing: Swallowing: yes on puree Current appetite: unable to access Recent wt change: unable to access %wt change: n/a Vitamin/Supplement use: unable to access Special diet at home: unable to access Physical activity: unable to access Nutrition education given: not possible at this time Food-drug interactions: none Education given: n/a Estimated Nutritional Needs Based on current body weight (60.8 kg) Energy: 7859-1698 kcal/day (30-35 kcal/kg for malnutrition, hepatic encephalopathy) Protein: 48-60 g/day (0.8-1.0 g/kg for hepatic encephalopathy) Fluid: 5394-7588 mL/day (1 mL/kcal) Nutrition Diagnosis: 1. Malnutrition related to chronic poor PO, hepatic encephalopathy as evidenced by impairment of functional mobility (per PT notes) and BMI 19.2 kg/m2 (considered underweight for geriatric age). Intervention 1. Recommend cardiac (puree) diet as patient has hepatic encephalopathy and will benefit from low sodium and low-fat diet. 2. Recommend ONS Ensure BID. Discussed with SIGN PAINTER HELPER Keke. Monitor/Evaluate Goal: PO intake at least 75% of estimated needs Monitor: PO intake, Labs, GI function F/U in 2-3 days as high risk 03/28-
--- NOTE | 2019-03-26 12:40 | NUR ---
PATIENT IN BED, EATING LUNCH. REFUSED LUNCH AND ONLY TOOK ORDERED SUPPLEMENT ENSURE. NO ACUTE RESP DISTRESS NOTED AT THIS TIME. REMAINS ON 3L NC. NO SOB NOTED. ASSISTED WITH PATIENT TRANSFER FROM BED TO BSC AND BSC TO BED. PATIENT IS TOTALLY DEPENDENT WITH TRANSFER BUT REFUSES TO USE BEDPAN. PATIENT HAD X1 STOOL, FORMED AND SOFT. PATIENT HAD INCONTINENCE X2 DURING THIS SHIFT. PT STATED THAT HE FEELS SENSATION WHEN URINATING. URINAL AT BEDSIDE TO COLLECT URINE SAMPLE. NO C/O PAIN. IV PATENT AND INTACT. SAFETY PRECAUTION IN PLACE. CALL LIGHT WITHIN REACH. WILL CONTINUE TO MONITOR.
--- NOTE | 2019-03-26 12:51 | NUR ---
SPOKE WITH URIEL PLANT SCIENCES PROFESSOR, REGARDING PLAN FOR PERACENTESIS. PER URIEL, SHE ORDERED PTT FOR MORNING LAB AND WILL DETERMINE FROM THERE THE PLAN OF CARE. NO SOB NOTED AT THIS TIME. PATIENT STABLE. WILL CONTINUE TO MONITOR.
[2019-03-26 13:36] VITALS: BP 114/89
--- NOTE | 2019-03-26 14:30 | NUR ---
PHYSICAL THERAPY DAILY NOTES CO-SIGN All documentation done by the Lease Purchase Driver for 03/26/19 has been reviewed. I agree with the documentation. Reviewed/Co-Signed by: Ivonne Bella PT Documentation Done by:HELLEN MCGHEE PTA
--- NOTE | 2019-03-26 15:00 | NUR ---
PATIENT IN BED, WATCHING TV. NO ACUTE RESP DISTRESS NOTED AT THIS TIME. NONPRODUCIVE COUGH NOTED. NO SPUTUM NOTED. NO C/O PAIN AT THIS TIME. INFILTRATION NOTED TO RFA, D/C IV TO RFA, TOLERATED WELL, CATHETER INTACT, GAUZE AND TAPE IN PLACE. WILL START NEW IV AND RESUME 1/2 NS ORDERED. SAFETY PRECAUTION IN PLACE. BLE ELEVATED. OFFERED APPLE JUICE FOR HYDRATION, PT REFUSED. CALL LIGHT WITHIN REACH. WILL CONTINUE TO MONITOR.
[2019-03-26 15:31] VITALS: BP 114/89
[2019-03-26 16:32] VITALS: BP 127/67
--- NOTE | 2019-03-26 19:25 | NUR ---
received pt from daysnmft nurse, pt had soiled himself, found on stomach with slight bloody nose. cleansed pt, changed entire linen of bed, applied new optiform to sacral area, pt voided as well, pt back in correct position, reports feeling better. sts he wants to go outside, informed pt he cannot go outside. pt verbalizes understanding, call light within reach, bed in lowest position, will continue to monitor.
[2019-03-26 22:25] VITALS: BP 132/73
--- NOTE | 2019-03-26 23:30 | NUR ---
ATTEMPTED TO INSERT NEW IV TO PT, PT REFUSING AT THIS TIME. EDUCATED PT IN REGARDS TO THE NEED FOR AN IV FOR ANTIBIOTICS. PT STILL REFUSING, WILL ATTEMPT IN AM. RESIDENT MADE AWARE. CALL LIGHT WTIHIN REACH, BED IN LOWEST POSITION, WILL CONTINUE TO MONITOR.
--- NOTE | 2019-03-27 05:05 | NUR ---
PT RESTED IN INTERVALS DURING SHIFT, NO ACUTE CHANGES OCCURRING OVERNIGHT. PT HAS LARGED, SOFT BM DURING CHANGE OF SHIFT, PT INCONTINENT OF URINE X2. PT RECIEVED ONE DOSE OF LEVAQUIN PO D/T PT STILL WITH NO IV ACCESS D/T POOR VEIN QUALITY AND WILL REATTEMPT CLOSER TO SHIFT CHANGE. PT CALM AND COOPERATIVE THIS AM, PT AOX3, PT APPEARS MORE ALERT AND ABLE TO MAKE NEEDS KNOWN AND CARRY A LONGER CONVERSATION. ALL COMFORT AND SAFETY MEASURES PROVIDED FOR, CALL LIGHT WITHIN REACH, BED IN LOWEST POSITION, WILL CONTINUE TO MONITOR.
[2019-03-27 06:07] VITALS: BP 122/71
[2019-03-27 06:58] LABS: BASOPHIL % 0.2 % (0-2)
[2019-03-27 07:08] LABS: CALCIUM 7.6 mg/dL (8.5-10.1); CARBON DIOXIDE 25.3 mmol/L (21-32); CHLORIDE SERUM 117 mmol/L (98-107); CREATININE SERUM 1.1 mg/dL (0.7-1.3); GLUCOSE SERUM 97 mg/dL (74-106); POTASSIUM SERUM 4.9 mmol/L (3.5-5.1); SODIUM SERUM 148 mmol/L (136-145)
[2019-03-27 07:21] LABS: PLATELET COUNT 99 x10^3mcL (130-400); RED CELL DISTRIBUTION WIDTH 15.7 % (11.5-14.5)
--- NOTE | 2019-03-27 07:30 | NUR ---
RECEIVED PATIENT AWAKE/CONFUSED, ORIENTED 1-2. ABLE TO FOLLOW SIMPLE COMMANDS. GARBLED SPEECH NOTED. NO DISTRESS NOTED, APPEAR CALM AT THIS TIME. M/S PATIENT. IV TO LW INTACT AND SL NOTED. CALL LIGHT IN REACH. BED ALARM IN PLACE.
--- NOTE | 2019-03-27 07:40 | NUR ---
FIFI CHARGE NURSE INSERTED M24G IV TO THE LEFT HAND, FLUSHING WELL. SALINE LOCKED AT THIS TIME. ENDORSED ALL CARE TO DAYSHIFT NURSE, ALL QUESTIONS AND CONCERNS ADDRESSED, CALL LIGHT WITHIN REACH, BED IN LOWEST POSITION.
--- NOTE | 2019-03-27 08:29 | NUR ---
HEALTHCARE RECEPTIONIST AT BEDSIDE SETUP TRAY FOR PATIENT, PATIENT ENCOURAGE TO FEED HIMSELF. CALL LIGHT WITHIN REACH.
[2019-03-27 08:40] VITALS: BP 95/62
[2019-03-27] MEDS ORDERED: IND10 PO (09:09)
[2019-03-27] MEDS ORDERED: XIFAXAN550 M1 PO (09:09)
[2019-03-27] MEDS ORDERED: BACO TOP (09:10)
[2019-03-27] MEDS ORDERED: LAC30L PO (09:10)
--- NOTE | 2019-03-27 09:24 | NUR ---
PATIENT AWAKE/ALERT IN BED, FOLLOWED SIMPLE COMMMANDS AND ABLE TO VERBALIZE NEEDS. ASSIST GIVING URINAL FOR REQUEST. PO MEDS GIVEN W/ APPLESAUCE AND TOLERATED. SHADE BANDER ASSIST PATIENT WITH BEDBATH AT THIS TIME.
[2019-03-27] MEDS ORDERED: ZYV600 PO (10:10)
--- NOTE | 2019-03-27 11:28 | NUR ---
PATIENT AWAKE/ALERT AT THIS TIME, REPOSITION UP IN BED. PATIENT REFUSED CRUSH MED PUT IN APPLESAUCE, TRY CUT ZYOX TAB IN HALF GAVE WITH WATER PATIENT TOLERATED, NEEDS MET. WATER AND URINAL PLACE NEXT TO PATIENT PER REQUEST. CALL LIGHT WITHIN REACH.
[2019-03-27 12:30] VITALS: BP 92/66
[2019-03-27 12:53] VITALS: BP 95/62
--- NOTE | 2019-03-27 13:16 | NUR ---
PATIENT AWAKE/ALERT IN BED, HOB ELEVATED. DTR KEYANNA AT BEDSIDE UPDATE PATIENT'S CONDITION AND POC. GAVE DISCHARGE INSTRUCT AND DTR SIGN ACKNOWLEDGE OF TRANSFER, SAUL MCKINNON AT BEDSIDE SPOKE WITH DTR AND UPDATE WAITING FOR ISOLATION BED.
--- NOTE | 2019-03-27 14:37 | NUR ---
PHYSICAL THERAPY DAILY NOTES CO-SIGN All documentation done by the [employer] [employer] for 03/27/19 has been reviewed. I agree with the documentation. Reviewed/Co-Signed by: Ivonne Bella PT Documentation Done by:HELLEN MCGHEE PTA
--- NOTE | 2019-03-27 16:25 | NUR ---
PATIENT AWAKE/ALERT IN BED, ASKING FOR NURSE TO HELP, URINAL GIVEN. NEEDS MET. CALL LIGHT WITHIN REACH
--- NOTE | 2019-03-27 16:30 | NUR ---
CALLED [facility] UPDATE PATIENT TRANSFER TO [facility]. PATIENT'S DTR WILL BE HERE SOON.
[2019-03-27 16:36] VITALS: BP 113/69
--- NOTE | 2019-03-27 17:31 | NUR ---
PATIENT AWAKE/ALERT TO SELF/PERSON, SPEAK TO DTR KEYANNA AT BEDSIDE. GAVE LASIX 20MG IVP X1 TO LW IV PATENT. UPDATE DTR WR[employer]PER [employer] AND EXAMINER SOFT WORK TIME 6:30PM. NEEDS MET. CALL LIGHT WITHIN REACH.
--- NOTE | 2019-03-27 18:00 | NUR ---
CALL [facility] GAVE REPORT TO NURSE HERNÁNDEZ.
--- NOTE | 2019-03-27 18:30 | NUR ---
CHANGE NEW ORANGE GOWN TO PATIENT AND READY PATIENT FOR TRANSFER. RESTING IN BED COMFORTABLE. DTR LEFT WILL SEE PATIENT AT [facility], NO BELONGINGS.
--- NOTE | 2019-03-27 19:25 | NUR ---
RECIEVED PT RESTING IN BED WAITING FOR TRANSPORT TO [facility], PT IS A/OX3 WITH NO COMPLAINTS OF [place]ITFIELD OR DIZZINESS AT THIS TIME, PT DENIES PAIN OR SOB AT THIS TIME ON 3L VIA NC, IV TO THE 24G, PT IS STABLE AND IN NO ACUTE DISTRESS AT THIS TIME, SAFETY PRECAUTIONS IN PLACE, WILL CONTINUE TO MONITOR
--- NOTE | 2019-03-27 20:22 | NUR ---
[facility] SUPPOSED TO BE HERE TO TRANSPORT PT CALLED [facility] TO FOLLOW UP AT THIS TIME, SAID THEY WERE RUNNING BEHIND, AND WOULD BE THERE IN 30-40 MIN.
[2019-03-27 21:20] VITALS: BP 141/90
== END 2019-03-27 21:20 | DRG 441 ==
LOC: ED 13:07 → DU 18:09 → MU 18:09 → DU 19:59 → MU 03-25 11:18
PROVIDERS: Emergency Medicine; Internal Medicine; Internal Medicine Nephrology; ADMIT Internal Medicine
DX: K72.90 Hepatic failure, unspecified without coma (principal); G93.41 Metabolic encephalopathy; N17.0 Acute kidney failure with tubular necrosis; E43 Unspecified severe protein-calorie malnutrition; J18.9 Pneumonia, unspecified organism; N39.0 Urinary tract infection, site not specified; Z68.1 Body mass index [BMI] 19.9 or less, adult; E87.0 Hyperosmolality and hypernatremia; B18.2 Chronic viral hepatitis C; K74.69 Other cirrhosis of liver; E86.0 Dehydration; L89.152 Pressure ulcer of sacral region, stage 2; G89.29 Other chronic pain; D64.9 Anemia, unspecified; D69.59 Other secondary thrombocytopenia; F32.9 Major depressive disorder, single episode, unspecified; I10 Essential (primary) hypertension; S00.1 Contusion of eyelid and periocular area; W18.39XS Other fall on same level, sequela; Z87.891 Personal history of nicotine dependence; R74.0 Nonspecific elevation of levels of transaminase and lactic acid dehydrogenase [LDH]
CPT/HCPCS: 82962; 83880; 84439; 97110-GP; 97530-GP; G0378; G0480; J1940; J1956; J3430; J3490; J7030; J7060; J7620; P9047; Q0092